=== PATIENT | female | born 1960 | race Two or more races ===

== ENCOUNTER 2025-03-24 18:29 | Emergency (ER) | payer MEDICAID, OTHER ==
[~2025-03-24] VITALS: Ht 167.6 cm; Wt 53.7 kg
[2025-03-24 18:32] VITALS: TEMP 98
[2025-03-24 19:06] VITALS: BP 152/74; PULSE 93; RESP 18; O2SAT 94
== END 2025-03-24 20:31 | disposition left against medical advice (07) ==
LOC: ER 18:29
DX: M25.552 Pain in left hip (principal); R51.9 Headache, unspecified; Z53.21 Procedure and treatment not carried out due to patient leaving prior to being seen by health care provider; Y08.89XA Assault by other specified means, initial encounter; Y93.89 Activity, other specified; Y92.89 Other specified places as the place of occurrence of the external cause; Y99.8 Other external cause status